=== PATIENT | male | born 1975 | race Caucasian/White ===

== ENCOUNTER 2020-11-25 15:02 | Emergency (ER) | payer BC ==
[2020-11-25 15:17] VITALS: O2SAT 96
[2020-11-25 15:49] LABS: ALBUMIN 4.2 g/dL (3.5-5.0); ALKALINE PHOSPHATASE 78 U/L (38-126); ANION GAP 8.4 MEQ/L (5-15); BLOOD UREA NITROGEN 20 mg/dL (9-20); CHLORIDE 96 mmol/L (98-107); Calcium 8.5 mg/dL (8.4-10.2); Carbon Dioxide 34 mmol/L (22-30); Creatinine 1 0.93 mg/dL (0.66-1.25); EST GLOMERULAR FILTRATION RATE > 60.0 ML/MIN; Glucose 110 mg/dL (74-106); MAGNESIUM 2.4 mg/dL (1.6-2.3); Potassium 3.5 mmol/L (3.5-5.1); SGOT/AST 49 U/L (17-59); SGPT/ALT 29 U/L (0-50); SODIUM 135 mmol/L (137-145); Total Protein 7.5 g/dL (6.3-8.2)
[2020-11-25 15:54] LABS: Absolute Neutrophil Ct (ANC) 1.79 (1.4-6.9); BASOPHIL % 0.3 % (0.0-0.4); Basophil (Absolute #) 0.01 (0-0.4); Eosinophil % 1.3 % (0.00-5.0); Eosinophil (Absolute #) 0.04 (0-0.5); Hematocrit 41.4 % (42-50); Hemoglobin 13.8 gm/dl (12.5-18.0); Lymphocyte (Absolute #) 0.85 (1.0-4.6); Lymphocytes % 28.1 % (24.0-44.0); Mean Cell Volume 89.4 fl (78-100); Mean Corpuscular Hemoglobin 29.8 pg (26-32); Mean Corpuscular Hgb Concent. 33.3 g/dl (32-36); Mean Platelet Volume 9.8 fl (7.5-11.0); Monocyte (Absolute #) 0.34 (0.0-1.3); Monocytes % 11.2 % (0.0-12.0); Neutrophil % 59.1 % (36.0-66.0); Platelet Count 180 K/mm3 (150-450); Red Blood Count 4.63 M/mm3 (4.1-5.6); Red Cell Distribution Width 12.6 % (11.5-14.0)
[2020-11-25 16:12] LABS: Appearance CLEAR (CLEAR); Bilirubin NEGATIVE (NEGATIVE); Blood NEGATIVE Ery/ul (0-5); Glucose NEGATIVE (NEGATIVE); Ketones NEGATIVE (NEGATIVE); Leukocyte Esterase NEGATIVE (NEGATIVE); Nitrite NEGATIVE (NEGATIVE); Protein,Urine Dip NEGATIVE (Negative); RBC 0-2 /HPF (0-2); Specific Gravity 1.018 (1.005-1.025); Urobilinogen NEGATIVE mg/dL (0-1); WBC 0-2 /HPF (0-5)
--- NOTE | 2020-11-25 16:31 | XRAY ---
Indication: Short of breath. Positive Covid 19. Comparison: None Portable chest demonstrates bilateral patchy airspace disease without consolidation/large effusion. Remaining heart and bony thorax are unremarkable.
[2020-11-25] MEDS ORDERED: Levofloxacin 500 MG Tablet PO ONE (17:07)
--- NOTE | 2020-11-25 17:14 | ERPHSYRPT ---
- History of Present Illness Time Seen by Provider: 11/25/20 15:06 Patient Subjective Stated Complaint: Pt states that he is covid positive and is having a harder time breathing, pt had surgery on his L5 due to nerve compre ssion last week Tuesday Triage Nursing Assessment: Pt was brought to the ER by his , roxana giron, diagnosed with covid and then diagnosed with pnuemonia on Tuesday from [facility] and was placed on an antibiotic, right lobes diminished, denies pain, some clear sputum with cough, skin n/w/d, Physician History: 45 years old male with history of hypertension, diabetes mellitus, recent L5 surgery done presented in the ER with cyst 6 days history of cough congestion, body aches with subjective feeling of fever and chills. Patient reports getting shortness of breath at times with coughing spell and activity. Patient reported last night he checked his oxygen saturation which was in low 80s. Is having chest tightness and pressure at times as well. Cough is nonproductive. Currently his oxygen saturation is 96% on room air, not in any distress. Does not have any fever in the ER. Timing/Duration: day(s) (6), gradual onset, worse Activities at Onset: activity Severity of Dyspnea-Max: moderate Severity of Dyspnea-Current: mild Possible Cause: illness exposure Modifying Factors: Worsens With: coughing, exertion Associated Symptoms: cough, chest pain/discomfort, fever, No weakness, No lightheadedness, No productive cough Allergies/Adverse Reactions: metformin Adverse Reaction (Verified 11/25/20 15:18) Travel Risk - International Travel Have you traveled outside of the country in past 3 weeks: No - Coronavirus Screening Are you exhibiting any of the following symptoms?: Yes Symptoms: Cough: New Onset, Shortness of Breath, Loss of Taste or Smell, Headaches/Body Aches/Fatigue Close contact with a COVID-19 positive Pt in past 14-21 Days: Yes - Review of Systems Constitutional: Fever, Chills, Weakness Eyes: No Symptoms Ears, Nose, & Throat: Nose Congestion, Throat Pain Respiratory: Cough, Dyspnea Cardiac: No Symptoms Abdominal/Gastrointestinal: No Symptoms Genitourinary Symptoms: No Symptoms Musculoskeletal: Myalgias Skin: No Symptoms Neurological: No Symptoms Psychological: No Symptoms Endocrine: No Symptoms Hematologic/Lymphatic: No Symptoms - Past Medical History Pertinent Past Medical History: Yes Cardiac History: High Cholesterol, Hypertension Endocrine Medical History: Diabetes Type II GI Medical History: GERD - Past Surgical History Past Surgical History: Yes Musculoskeletal: Orthopedic Surgery, Other - Social History Smoking Status: Former smoker Exposure to second hand smoke: No Drug Use: none Patient Lives Alone: No - Nursing Vital Signs Nursing Vital Signs: Initial Vital Signs Temperature 98.4 F 11/25/20 15:03 Pulse Rate 61 11/25/20 15:03 Respiratory Rate 20 11/25/20 15:03 Blood Pressure 123/79 11/25/20 15:03 O2 Sat by Pulse Oximetry 98 11/25/20 15:03 Pain Scale Pain Intensity 0 - Physical Exam General Appearance: no apparent distress, alert Eye Exam: PERRL/EOMI, eyes nml inspection Ears, Nose, Throat Exam: hearing grossly normal, pharyngeal erythema Neck Exam: normal inspection, non-tender, supple, full range of motion Respiratory Exam: rhonchi, No respiratory distress, No accessory muscle use Cardiovascular/Chest Exam: normal heart sounds, regular rate/rhythm Abdominal/Gastrointestinal Exam: soft, normal bowel sounds, No tenderness Extremity Exam: non-tender, normal range of motion, normal inspection Neurologic Exam: alert, oriented x 3, cooperative, 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 11/25/20 15:36 Active EKG-ER Only STAT Care 11/25/20 15:35 Active IV Insertion STAT Care 11/25/20 15:35 Active CHEST 1 VIEW (PORTABLE) Stat Exams 11/25/20 15:36 Completed BLOOD CULTURE Stat Lab 11/25/20 16:00 Received CBC W DIFF Stat Lab 11/25/20 15:00 Completed CMP Stat Lab 11/25/20 15:00 Completed D-DIMER QUANTITATIVE Stat Lab 11/25/20 15:00 Completed Lactic Acid Stat Lab 11/25/20 15:35 Completed MAGNESIUM Stat Lab 11/25/20 15:00 Completed TROPONIN Q3H Lab 11/25/20 15:45 Completed TROPONIN Q3H Lab 11/25/20 18:45 Ordered TROPONIN Q3H Lab 11/25/20 21:45 Ordered TROPONIN Q3H Lab 11/26/20 00:45 Ordered TROPONIN Q3H Lab 11/26/20 03:45 Ordered UA W/RFX UR CULTURE Stat Lab 11/25/20 15:37 Completed Lab/Rad Data: Laboratory Result Diagrams 11/25/20 15:00 11/25/20 15:00 Laboratory Results 11/25/20 11/25/20 11/25/20 Range/Units 15:45 15:37 15:35 WBC (4.0-10.5) K/mm3 RBC (4.1-5.6) M/mm3 Hgb (12.5-18.0) gm/dl Hct (42-50) % MCV (78-100) fl MCH (26-32) pg MCHC (32-36) g/dl RDW (11.5-14.0) % Plt Count (150-450) K/mm3 MPV (7.5-11.0) fl Gran % (36.0-66.0) % Eos # (Auto) (0-0.5) Absolute Lymphs (auto) (1.0-4.6) Absolute Monos (auto) (0.0-1.3) Lymphocytes % (24.0-44.0) % Monocytes % (0.0-12.0) % Eosinophils % (0.00-5.0) % Basophils % (0.0-0.4) % Absolute Granulocytes (1.4-6.9) Basophils # (0-0.4) D-Dimer (215-500) ng/mL Sodium (137-145) mmol/L Potassium (3.5-5.1) mmol/L Chloride (98-107) mmol/L Carbon Dioxide (22-30) mmol/L Anion Gap (5-15) MEQ/L BUN (9-20) mg/dL Creatinine (0.66-1.25) mg/dL Estimated GFR ML/MIN Glucose (74-106) mg/dL Lactic Acid 1.0 (0.4-2.0) Calcium (8.4-10.2) mg/dL Magnesium (1.6-2.3) mg/dL Total Bilirubin (0.2-1.3) mg/dL AST (17-59) U/L ALT (0-50) U/L Alkaline Phosphatase (38-126) U/L Troponin I < 0.012 (0.000-0.034) ng/mL Serum Total Protein (6.3-8.2) g/dL Albumin (3.5-5.0) g/dL Urine Color YELLOW (YELLOW) Urine Appearance CLEAR (CLEAR) Urine pH 7.0 (5-6) Ur Specific [place] 1.018 (1.005-1.025) Urine Protein NEGATIVE (Negative) Urine Ketones NEGATIVE (NEGATIVE) Urine Blood NEGATIVE (0-5) Kamran/ul Urine Nitrite NEGATIVE (NEGATIVE) Urine Bilirubin NEGATIVE (NEGATIVE) Urine Urobilinogen NEGATIVE (0-1) mg/dL Ur Leukocyte Esterase NEGATIVE (NEGATIVE) Urine WBC (Auto) 0-2 (0-5) /HPF Urine RBC (Auto) 0-2 (0-2) /HPF U Epithel Cells (Auto) NONE (FEW) /HPF Urine Bacteria (Auto) NONE (NEGATIVE) /HPF Urine Culture Reflexed NO (NO) Urine Glucose NEGATIVE (NEGATIVE) mg/dL 11/25/20 11/25/20 11/25/20 Range/Units 15:00 15:00 15:00 WBC 3.0 L (4.0-10.5) K/mm3 RBC 4.63 (4.1-5.6) M/mm3 Hgb 13.8 (12.5-18.0) gm/dl Hct 41.4 L (42-50) % MCV 89.4 (78-100) fl MCH 29.8 (26-32) pg MCHC 33.3 (32-36) g/dl RDW 12.6 (11.5-14.0) % Plt Count 180 (150-450) K/mm3 MPV 9.8 (7.5-11.0) fl Gran % 59.1 (36.0-66.0) % Eos # (Auto) 0.04 (0-0.5) Absolute Lymphs (auto) 0.85 L (1.0-4.6) Absolute Monos (auto) 0.34 (0.0-1.3) Lymphocytes % 28.1 (24.0-44.0) % Monocytes % 11.2 (0.0-12.0) % Eosinophils % 1.3 (0.00-5.0) % Basophils % 0.3 (0.0-0.4) % Absolute Granulocytes 1.79 (1.4-6.9) Basophils # 0.01 (0-0.4) D-Dimer 426 (215-500) ng/mL Sodium 135 L (137-145) mmol/L Potassium 3.5 (3.5-5.1) mmol/L Chloride 96 L (98-107) mmol/L Carbon Dioxide 34 H (22-30) mmol/L Anion Gap 8.4 (5-15) MEQ/L BUN 20 (9-20) mg/dL Creatinine 0.93 (0.66-1.25) mg/dL Estimated GFR > 60.0 ML/MIN Glucose 110 H (74-106) mg/dL Lactic Acid (0.4-2.0) Calcium 8.5 (8.4-10.2) mg/dL Magnesium 2.4 H (1.6-2.3) mg/dL Total Bilirubin 0.50 (0.2-1.3) mg/dL AST 49 (17-59) U/L ALT 29 (0-50) U/L Alkaline Phosphatase 78 (38-126) U/L Troponin I (0.000-0.034) ng/mL Serum Total Protein 7.5 (6.3-8.2) g/dL Albumin 4.2 (3.5-5.0) g/dL Urine Color (YELLOW) Urine Appearance (CLEAR) Urine pH (5-6) Ur Specific [place] (1.005-1.025) Urine Protein (Negative) Urine Ketones (NEGATIVE) Urine Blood (0-5) Kamran/ul Urine Nitrite (NEGATIVE) Urine Bilirubin (NEGATIVE) Urine Urobilinogen (0-1) mg/dL Ur Leukocyte Esterase (NEGATIVE) Urine WBC (Auto) (0-5) /HPF Urine RBC (Auto) (0-2) /HPF U Epithel Cells (Auto) (FEW) /HPF Urine Bacteria (Auto) (NEGATIVE) /HPF Urine Culture Reflexed (NO) Urine Glucose (NEGATIVE) mg/dL - Progress Progress: improved Air Movement: good Progress Note: 11/25/20 17:12 Patient is not in any distress on presentation. He does not have any toxic appearance. He has a good oxygen saturation around 96% on room air throughout stay in the ER. Not tachypneic or tachycardic. Has white count of 3 which is consistent with Covid and stable platelets. He does have bilateral Covid pneumonia but no effusion. I have given him a dose of Levaquin as well in here. Patient would benefit with Bamlanivimab therapy and have discussed with Ernestine Regalado, patient would receive it tomorrow and outpatient infusion center. I have discussed with patient about the risk and benefits of this medication and the fact that it is experimental medication and can have allergic reaction and other side effects patient wants to go ahead with it. I would not give him steroid as patient is diabetic and it will worsen his blood sugar. I do not think patient needs to be admitted to the hospital. I have discussed with patient in detail about signs symptoms of worsening needing return to ER which he seems understanding. Blood Culture(s) Obtained: Yes Antibiotics given: Yes Counseled pt/family regarding: lab results, diagnosis, need for follow-up, rad results - Departure Departure Disposition: Home Clinical Impression: Pneumonia due to COVID-19 virus Condition: Stable Critical Care Time: No Referrals: ROSAURA PYLE [Primary Care Provider] - (1-2 days for re evaluation) Instructions: Shortness of Breath (Dyspnea) (DC), Pneumonia, Adult (DC) Additional Instructions: You will be receiving a call tomorrow morning for telemetry visit before the Bamlanivimab infusion. Monitor your oxygen and return to ER for any worsening. Take Tylenol as needed. Take cough medications as needed. Return to ER for worsening shortness of breath/cough or if develop fever chills etc. Prescriptions: Levofloxacin [Levaquin 500 MG Tablet] 500 mg PO DAILY #7 tablet
[2020-11-25] MEDS ORDERED: Levofloxacin 500 MG Tablet ONE (17:33)
[2020-11-25 17:40] VITALS: BP 107/68; PULSE 64
== END 2020-11-25 17:44 | disposition home or self-care (01) ==
LOC: ED 15:02
DX: U07.1 COVID-19 (principal); J12.89 Other viral pneumonia
CPT/HCPCS: 36000; 36415; 71045; 80053; 81001; 83605; 83735; 84484; 85025; 85379; 87040; 93005; 93041; 99284; A9270-GY